=== PATIENT | male | born 1935 | race Two or more races ===

== ENCOUNTER 2016-10-29 21:11 | Emergency (ER) | payer MEDICARE, MEDICAID ==
[~2016-10-29] VITALS: Ht 172.7 cm; Wt 86.2 kg
--- NOTE | 2016-10-29 21:40 | NUR ---
PT BIBA, PT IS ALTERED, PT BREATHIGN EFFORTLESSLY ON ROOM AIR, PT PER EMS WAS TRYING TO SIT IN A CHAIR AND FELL AND HIT HIS HEAD INTO THE CHAIR, PT STATES HE IS FEELING FINE, THERE IS A BUMP ONHT EBACK OF HIS HEAD, PT FRIEND IS AT BEDSIDE, PT ON MONITOR, MD MADE AWAREWILL CONTINUE TO MONITOR.
[2016-10-29 22:05] LABS: BASOPHILS # (AUTO) 0.1 /CMM (0.0-0.2); BASOPHILS % (AUTO) 0.4 % (0.0-2.0); EOSINOPHILS % (AUTO) 0.1 % (0.0-6.0); HEMATOCRIT 35 % (39-51); HEMOGLOBIN 11.4 g/dL (13.5-17.5); LYMPHOCYTES # (AUTO) 1.6 /CMM (0.8-4.8); MEAN CORPUSCULAR HEMOGLOBIN 29 PG (26.0-33.0); MEAN CORPUSCULAR HGB CONC 33 g/dl (31.0-36.0); MEAN CORPUSCULAR VOLUME 87 fL (80-96); MONOCYTES # (AUTO) 1.1 /CMM (0.1-1.30); MONOCYTES % (AUTO) 8.4 % (2.0-12.0); NEUTROPHILS # (AUTO) 10.7 /CMM (1.8-8.9); NEUTROPHILS % (AUTO) 79.1 % (43.0-81.0); PLATELET COUNT (AUTO) 225 /CMM (150-450); RDW COEFFICIENT OF VARIATION 14.7 (11.5-15.0); RED BLOOD CELL COUNT(AUTO) 3.99 MIL/uL (4.5-6.0); WHITE BLOOD COUNT (AUTO) 13.5 K/uL (4.3-11.0)
[2016-10-29 22:22] LABS: CALCIUM, SERUM 8.4 mg/dL (8.5-10.1); CARBON DIOXIDE 25 mmol/L (21-32); CHLORIDE 108 mmol/L (98-107); CREATININE 1.1 mg/dL (0.6-1.3); GLUCOSE 102 mg/dL (74-106); POTASSIUM 3.9 mmol/L (3.5-5.1); SODIUM SERUM 144 mmol/L (136-145); UREA NITROGEN, BLOOD 25 mg/dL (7-18)
[2016-10-29 22:26] LABS: INR 1.54 (0.87-1.13); PROTHROMBIN TIME 16.9 SECS (9.5-12.7)
[2016-10-29 22:30] LABS: TROPONIN I < 0.017 ng/mL (0.00-0.056)
[2016-10-29 22:39] LABS: APPEARANCE,URINE TURBID (CLEAR); BILIRUBIN,URINE NEGATIVE (NEGATIVE); BLOOD, URINE 1+ Ery/uL (NEGATIVE); COLOR,URINE YELLOW (YELLOW); KETONES,URINE NEGATIVE (NEGATIVE); LEUKOCYTE ESTERASE ,URINE NEGATIVE (NEGATIVE); NITRITE, URINE NEGATIVE (NEGATIVE); PH,URINE 5.5 (5.0-8.0); PROTEIN,URINE 1+ mg/dl (NEGATIVE); UGLUCOSE NEGATIVE (NEGATIVE)
[2016-10-29 22:46] LABS: ADD URINE CULTURE NO; BACTERIA,URINE Rare /HPF (None Seen); SQUAMOUS EPITHELIAL CELL,UR Few /HPF (None Seen)
--- NOTE | 2016-10-30 00:36 | NUR ---
[facility] CALLED FOR TRANSPORT. ETA 1-1.5 HRS
[2016-10-30 03:51] VITALS: BP 104/88
== END 2016-10-30 03:53 ==
LOC: ER 21:20
DX: S09.90XA Unspecified injury of head, initial encounter (principal); R51 Headache; I10 Essential (primary) hypertension; I48.91 Unspecified atrial fibrillation; F03.90 Unspecified dementia, unspecified severity, without behavioral disturbance, psychotic disturbance, mood disturbance, and anxiety; G93.41 Metabolic encephalopathy; R82.79 Other abnormal findings on microbiological examination of urine; W07.XXXA Fall from chair, initial encounter; Y93.89 Activity, other specified; Y92.89 Other specified places as the place of occurrence of the external cause; Y99.8 Other external cause status
CPT/HCPCS: 36415; 70450; 80048; 81001; 84484; 85025; 85730; 87086; 93005; 99285; A4606; 81000-TC; Z7610

== ENCOUNTER 2017-11-13 12:04 | Inpatient (IN) | payer MEDICARE, OTHER ==
[~2017-11-13] VITALS: Ht 185.4 cm; Wt 72.6 kg
--- NOTE | 2017-11-13 12:04 | NUR ---
PATIENT [facility] DEMOLISHED 2001 FOR SOB, REPORTED PT'S O2 LEVEL WAS IN LOW 80'S% IN THE FIELD. BS-158. PT IS FEBRILE, NOTED 104.5 'F RECTALLY. TACHYCARDIC AT 140-150'S. PT IS VERY CONFUSED, UNABLE TO GET HISTORY. PT GOWNED AND PLACED ON CONT CARDIAC AND POX MONITORING. ALL NEEDS ARE ATTENDED, KEPT COMFORTABLE. DR. CORDOVA AT BEDSIDE FOR EVALUATION.
[2017-11-13] MEDS ORDERED: ACETAMINOPHEN 650 MG/SUPP.RECT RC ONE ×2 (12:10→12:30)
[2017-11-13] MEDS ORDERED: OLANZAPINE 10 MG VIAL IM ONE ×4 (12:19→13:30)
--- NOTE | 2017-11-13 12:20 | NUR ---
IV ACCESS STARTED, BLOOD AND CULTURES DRAWN FOR LABS. MEDICATED ORDERED.
[2017-11-13 12:27] LABS: BASOPHILS # (AUTO) 0.9 /CMM (0.0-0.2); BASOPHILS % (AUTO) 4.2 % (0.0-2.0); EOSINOPHILS % (AUTO) 0.1 % (0.0-6.0); HEMATOCRIT 36 % (39-51); HEMOGLOBIN 12.2 g/dL (13.5-17.5); LYMPHOCYTES # (AUTO) 1.8 /CMM (0.8-4.8); LYMPHOCYTES % (AUTO) 8.2 % (20.0-44.0); MEAN CORPUSCULAR HGB CONC 34 g/dl (31.0-36.0); MEAN CORPUSCULAR VOLUME 89 fL (80-96); MONOCYTES % (AUTO) 4.7 % (2.0-12.0); NEUTROPHILS # (AUTO) 18.4 /CMM (1.8-8.9); NEUTROPHILS % (AUTO) 82.8 % (43.0-81.0); PLATELET COUNT (AUTO) 214 /CMM (150-450); RDW COEFFICIENT OF VARIATION 14.7 (11.5-15.0); RED BLOOD CELL COUNT(AUTO) 4.01 MIL/uL (4.5-6.0); WHITE BLOOD COUNT (AUTO) 22.1 K/uL (4.3-11.0)
[2017-11-13] MEDS ORDERED: VANCOMYCIN 1 GM in IV D5W 250 ML IV ONE (12:30)
[2017-11-13] MEDS ORDERED: IV NS 0.9% 1,000 ML BAG IV ONE (12:30)
[2017-11-13] MEDS ORDERED: ACETAMINOPHEN ES 500 MG TABLET PO ONE (12:30)
[2017-11-13] MEDS ORDERED: MEROPENEM 1 G in IV NS 0.9% 100 ML IV ONE (12:30)
[2017-11-13 12:35] LABS: CALCIUM, SERUM 9.1 mg/dL (8.5-10.1); CARBON DIOXIDE 23 mmol/L (21-32); CHLORIDE 103 mmol/L (98-107); CREATININE 1.3 mg/dL (0.6-1.3); GLUCOSE 162 mg/dL (74-106); POTASSIUM 4.9 mmol/L (3.5-5.1); SODIUM SERUM 138 mmol/L (136-145); UREA NITROGEN, BLOOD 30 mg/dL (7-18)
[2017-11-13 12:39] LABS: INR 1.12 (0.85-1.15)
[2017-11-13 12:41] LABS: ALANINE AMINOTRANSFERASE 21 U/L (12-78); ALBUMIN 3.1 g/dL (3.4-5.0); ALKALINE PHOSPHATASE 88 U/L (46-116); ASPARTATE AMINOTRANSFERASE 22 U/L (15-37); BILIRUBIN,DIRECT 0.7 mg/dL (0.0-0.2); BILIRUBIN,TOTAL 1.5 mg/dL (0.2-1.0); TOTAL PROTEIN, SERUM 7.2 g/dL (6.4-8.2)
[2017-11-13 12:43] LABS: TROPONIN I 0.022 ng/mL (0.00-0.056)
--- NOTE | 2017-11-13 13:00 | NUR ---
URINE SAMPLE OBTAINED, VIA IN AND OUT CATH. SENT.
[2017-11-13 13:14] LABS: APPEARANCE,URINE Cloudy (CLEAR); BILIRUBIN,URINE MODERATE (NEGATIVE); BLOOD, URINE Trace-intact Ery/uL (NEGATIVE); COLOR,URINE Dark (YELLOW); KETONES,URINE Trace (NEGATIVE); LEUKOCYTE ESTERASE ,URINE Negative (NEGATIVE); NITRITE, URINE Negative (NEGATIVE); PROTEIN,URINE 100 mg/dl (NEGATIVE); UGLUCOSE 100 MG/DL mg/dL (NEGATIVE)
--- NOTE | 2017-11-13 13:16 | NUR ---
PT IS ASSIGNED TO [facility]#: [id number], PT IS DIAGNOSED WITH SEPSIS AND PNEUMONIA, AND KINA PLEITEZ IS THE ACCEPTING DNP.
[2017-11-13] MEDS ORDERED: DILT180C66 PO (13:18)
[2017-11-13] MEDS ORDERED: CHOL200026 PO (13:18)
[2017-11-13] MEDS ORDERED: SACC250C PO (13:18)
[2017-11-13] MEDS ORDERED: NA P133E RC (13:18)
[2017-11-13] MEDS ORDERED: DIGO250T PO (13:18)
[2017-11-13] MEDS ORDERED: PANT40TA2 PO (13:18)
[2017-11-13] MEDS ORDERED: MAG30ORA PO (13:18)
[2017-11-13] MEDS ORDERED: ONDA4TAB5 PO (13:18)
[2017-11-13] MEDS ORDERED: ACET-868 PO (13:18)
[2017-11-13] MEDS ORDERED: IPRA0.2S49 IH (13:18)
[2017-11-13] MEDS ORDERED: MIRT15TA PO (13:18)
[2017-11-13] MEDS ORDERED: DIVA125C2 PO (13:18)
[2017-11-13] MEDS ORDERED: TEMA15CA PO (13:18)
[2017-11-13] MEDS ORDERED: LEVA1.2528 IH (13:18)
[2017-11-13] MEDS ORDERED: RISP2TAB5 PO (13:18)
[2017-11-13] MEDS ORDERED: RIVA10TA PO (13:18)
[2017-11-13] MEDS ORDERED: RISP1TAB27 PO (13:18)
[2017-11-13] MEDS ORDERED: MULT-447 PO (13:18)
[2017-11-13] MEDS ORDERED: DEXT15DR6 EACHEYE (13:18)
--- NOTE | 2017-11-13 13:18 | NUR ---
RECEIVED VERBAL ORDER FROM DR. CORDOVA FOR ZYPREXA 5MG IM. ORDERS CARRIED OUT.
--- NOTE | 2017-11-13 13:24 | NUR ---
REPORT GIVEN TO PARKER TROY FOR TELE [id number].
[2017-11-13 13:28] LABS: BACTERIA,URINE Few /HPF (None Seen); SQUAMOUS EPITHELIAL CELL,UR Moderate /HPF (None Seen)
[2017-11-13] MEDS ORDERED: IV NS 0.9% 500 ML BAG IV ONE (13:30)
[2017-11-13] MEDS ORDERED: MAGNESIUM HYDROXIDE 30 ML UDC PO PRN (13:30)
[2017-11-13] MEDS ORDERED: Z GUARD REMEDY 2 OZ OINT TP PRN (13:30)
[2017-11-13] MEDS ORDERED: ACETAMINOPHEN 325 MG TABLET PO PRN ×2 (13:30→16:00)
[2017-11-13] MEDS ORDERED: MAG HYDROX/AL HYDROX/SIMETH 30 ML UDC PO PRN (13:30)
[2017-11-13] MEDS ORDERED: ONDANSETRON HCL/PF 4 MG/2 ML VIAL IVP PRN (13:30)
[2017-11-13] MEDS ORDERED: ACETAMINOPHEN 650 MG/SUPP.RECT RC PRN (13:30)
[2017-11-13] MEDS ORDERED: HYDROCODONE/APAP 5/325MG 1 EACH TABLET PO PRN (13:30)
[2017-11-13] MEDS ORDERED: ZOLPIDEM TARTRATE 5 MG TABLET PO PRN (13:30)
--- NOTE | 2017-11-13 14:00 | NUR ---
MS LIBRARY CLERK TALKING BOOKS NOTE Patient admitted to [facility] from ED for pneumonia. Assisted patient to bed, made comfortable. Patient AAOx1 to self with confusion and agitation. Patient arrived with non-rebreather mask on 15L O2. BP 107/60, HR 144 bpm, RR 22, O2 Sat 97%, T 98.1 F. Peripheral IV LFA #18. Admission assessment completed and current orders acknowledged. Bed placed in low/locked position with two side rails up, and call robles within reach. Will continue to monitor.
[2017-11-13] MEDS ORDERED: IPRATROPIUM NEB FS 0.5 MG/2.5 ML AMPUL.NEB IH PRN (16:00)
[2017-11-13] MEDS ORDERED: NA PHOS,M-B/NA PHOS,DI-BA 1 EA ENEMA RC PRN (16:00)
[2017-11-13] MEDS ORDERED: FEE PK DOSING 1 MIN EA MC ONE (16:05)
[2017-11-13] MEDS ORDERED: ONDANSETRON 4 MG TAB.RAPDIS PO PRN (16:30)
--- NOTE | 2017-11-13 17:54 | NUR ---
GENERAL PRODUCTION MANAGER NOTES RECEIVED ORDER FROM KINA GOODMAN TO CHANGE ORDER FROM NPO TO NPO EXCEPT MEDS, NOTED AND CARRIED OUT.
[2017-11-13] MEDS: POLYVINYL ALCOHOL 15 ML BOTTLE EACHEYE SCH (18:01)
[2017-11-13] MEDS: CHOLECALCIFEROL 1,000 UNIT TABLET (VIT D3) PO SCH (18:01)
[2017-11-13] MEDS: LACTOBACILLUS RHAMNOSUS GG 1 EACH CAP.SPRINK PO SCH (18:03)
[2017-11-13] MEDS: MEROPENEM 1 G in IV NS 0.9% 100 ML IV SCH (18:03)
[2017-11-13] MEDS: DIVALPROEX SODIUM 125 MG CAP.SPRINK PO SCH (18:03)
--- NOTE | 2017-11-13 18:55 | NUR ---
MS RN CLOSING NOTES Patient resting in bed, sleeping intermittently. AOx1 - patient follows simple commands but is often confused and easily agitated; patient unable to keep still - often pulling at IV line and O2 NC; patient has 1:1 sitter. Patient on 5 L O2 NC with no SOB. No signs or symptoms acute distress. Left forearm IV running NS at 75 ml/hr. Blood and urine cultures pending. Metabolic panel and CBC next AM. Patient remains on tele monitor NSR with occasional PVCs. Bed in low/locked position, two side rails up, call robles within reach. Care to be endorsed to shift supervisor melting nurse.
[2017-11-13] MEDS: RIVAROXABAN 10 MG TABLET PO SCH (19:24)
[2017-11-13] MEDS: IV NS 0.9% 1,000 ML IV PRN (19:25)
[2017-11-13] MEDS ORDERED: ALBUTEROL FS 2.5 MG/3 ML VIAL.NEB NEB PRN (19:30)
--- NOTE | 2017-11-13 19:30 | NUR ---
PAPER CONE MACHINE TENDER OPENING NOTES RECEIVED PT IN BED, AWAKE, VERBALLY RESPONSIVE, ZIMBABWEAN SPEAKING. ON O2 VIA N/C AT 5L/MIN, RESPIRATIONS EVEN, UNLABORED, NO APPARENT DISTRESS NOTED. SR WITH PVC 96 BPM. NO S/SX OF PAIN OR DISCOMFORT NOTED. IV SITE LFA INTACT, PATENT. SITTER AT BED SITE. BED LOCKED IN LOWEST POSITION. ATTENDED ALL NEEDS. WILL CONTINUE TO MONITOR ACCORDINGLY.
[2017-11-13 20:00] VITALS: BP 110/78
[2017-11-13] MEDS: risperiDONE 1 MG TABLET PO SCH (21:19)
[2017-11-13] MEDS: MIRTAZAPINE 15 MG TABLET PO SCH (21:20)
[2017-11-13] MEDS: TEMAZEPAM 15 MG CAPSULE PO SCH (21:20)
[2017-11-14] VITALS: BP 112/64
[2017-11-14] MEDS: VANCOMYCIN 500 MG in IV NS 0.9% 100 ML IV SCH ×2 (00:35→13:10)
[2017-11-14] MEDS: MEROPENEM 1 G in IV NS 0.9% 100 ML IV SCH ×2 (05:01→17:49)
[2017-11-14] MEDS: IV NS 0.9% 1,000 ML IV PRN (05:01)
--- NOTE | 2017-11-14 06:56 | NUR ---
TRAVEL AGENT CLOSING NOTES PT IN BED RESTING COMFORTABLY,NO APPARENT DISTRESS NOTED. NO S/SX OF PAIN OR DISCOMFORT NOTED. IV SITE INTACT, PATENT. KEPT CLEAN AND COMFORTABLE, ATTENDED ALL NEEDS. SITTER AT BEDSIDE. WILL ENDORSE TO DAY SHIFT FOR CONTINUITY OF CARE.
--- NOTE | 2017-11-14 07:05 | NUR ---
RN OPENING NOTES RECEIVED PATIENT IN BED, ALERT ORIENTED X 2. SITTER AT BEDSIDE. NO ACUTE DISTRESS NOTES. BREATHING UNLABORED. ON O2 VIA NC. IV ACCESS PATENT AND INTACT. SAFETY MEASURES IN PLACE. HOB ELEVATED. CALL LIGHT WITHIN REACH. WILL CONTINUE TO MONITOR ACCORDINGLY.
[2017-11-14 07:11] LABS: BASOPHILS % (AUTO) 0.2 % (0.0-2.0); HEMATOCRIT 33 % (39-51); HEMOGLOBIN 11.5 g/dL (13.5-17.5); LYMPHOCYTES % (AUTO) 7.8 % (20.0-44.0); MEAN CORPUSCULAR HGB CONC 34 g/dl (31.0-36.0); MEAN CORPUSCULAR VOLUME 90 fL (80-96); MONOCYTES # (AUTO) 0.3 /CMM (0.1-1.30); MONOCYTES % (AUTO) 2.6 % (2.0-12.0); NEUTROPHILS # (AUTO) 11.7 /CMM (1.8-8.9); NEUTROPHILS % (AUTO) 89.4 % (43.0-81.0); PLATELET COUNT (AUTO) 155 /CMM (150-450); RDW COEFFICIENT OF VARIATION 15.5 (11.5-15.0); RED BLOOD CELL COUNT(AUTO) 3.71 MIL/uL (4.5-6.0); WHITE BLOOD COUNT (AUTO) 13.1 K/uL (4.3-11.0)
[2017-11-14] MEDS ORDERED: PANTOPRAZOLE 40 MG TABLET.DR PO SCH (07:30)
[2017-11-14 07:35] LABS: ALANINE AMINOTRANSFERASE 23 U/L (12-78); ALBUMIN 2.4 g/dL (3.4-5.0); ALKALINE PHOSPHATASE 59 U/L (46-116); ASPARTATE AMINOTRANSFERASE 31 U/L (15-37); CALCIUM, SERUM 8.2 mg/dL (8.5-10.1); CARBON DIOXIDE 23 mmol/L (21-32); CHLORIDE 108 mmol/L (98-107); CREATININE 0.3 mg/dL (0.6-1.3); GLUCOSE 94 mg/dL (74-106); MAGNESIUM 1.7 mg/dL (1.8-2.4); PHOSPHORUS 2.6 mg/dL (2.5-4.9); POTASSIUM 3.5 mmol/L (3.5-5.1); SODIUM SERUM 142 mmol/L (136-145); TOTAL PROTEIN, SERUM 6.4 g/dL (6.4-8.2); UREA NITROGEN, BLOOD 23 mg/dL (7-18)
[2017-11-14 07:37] LABS: CHOLESTEROL 105 mg/dL (<200); HDL CHOLESTEROL 30 mg/dL (40-60); LDL 68 mg/dL (0-99); THYROID STIMULATING HORMONE 1.718 uIU/mL (0.358-3.74); TRIGLYCERIDES 71 mg/dL (30-150)
[2017-11-14 08:00] VITALS: BP 121/66
[2017-11-14] MEDS: DILTIAZEM HCL CD 180 MG PO SCH (08:39)
[2017-11-14] MEDS: MULTIVIT, IRON, MIN NO. 8, FA 1 TAB PO SCH (08:40)
[2017-11-14] MEDS: risperiDONE 1 MG TABLET PO SCH ×2 (08:40→21:20)
[2017-11-14] MEDS: CHOLECALCIFEROL 1,000 UNIT TABLET (VIT D3) PO SCH (08:40)
[2017-11-14] MEDS: DIVALPROEX SODIUM 125 MG CAP.SPRINK PO SCH ×3 (08:40→17:50)
[2017-11-14] MEDS: LACTOBACILLUS RHAMNOSUS GG 1 EACH CAP.SPRINK PO SCH ×2 (08:40→17:50)
[2017-11-14] MEDS: PANTOPRAZOLE 40 MG VIAL IV SCH (08:40)
[2017-11-14] MEDS: POLYVINYL ALCOHOL 15 ML BOTTLE EACHEYE SCH ×2 (08:41→17:52)
[2017-11-14] MEDS ORDERED: MAG HYDROX/AL HYDROX/SIMETH 30 ML UDC PO SCH (09:00)
--- NOTE | 2017-11-14 09:40 | NUR ---
RN NOTES SEEN AND EVALUATED BY DR VARGHESE AND DR BECK WITH NEW ORDERS MADE. NOTED AND CARRIED OUT.
--- NOTE | 2017-11-14 11:45 | NUR ---
RN NOTES SEEN AND EVALUATED BY REX PLEITEZ WITH NEW ORDERS MADE. NOTED AND CARRIED OUT.
[2017-11-14] MEDS: Magnesium 1GM/D5W 100ML PREMIX 100 ML IV SCH ×2 (11:53→14:31)
[2017-11-14] MEDS: DIGOXIN 0.25 MG TABLET PO SCH (13:59)
[2017-11-14 16:00] VITALS: BP 112/73
[2017-11-14] MEDS: RIVAROXABAN 10 MG TABLET PO SCH (17:51)
--- NOTE | 2017-11-14 18:45 | NUR ---
RN CLOSING NOTES PATIENT IN BED, ALERT ORIENTED X2. SITTER AT BEDSIDE. NO ACUTE DISTRESS NOTES. BREATHING UNLABORED. ON O2 VIA NC, IV ACCESS PATENT AND INTACT. DUE MEDICATIONS GIVEN, NO ASE NOTED. SAFETY MEASURES IN PLACE. CALL LIGHT WITHIN REACH. WILL CONTINUE TO MONITOR ACCORDINGLY.WILL ENDORSE TO NIGHT NURSE FOR CONTINUITY OF CARE.
--- NOTE | 2017-11-14 19:25 | NUR ---
RN OPENING NOTES PT RESTING IN BED. 1:1 SITTER AT BEDSIDE. NO APPARENT S/S OF PAIN, DISTRESS OR SOB AT THIS. PT HAS A LEFT FOREARM #18 IV RUNNING NS @75ML/HR. SAFETY PRECAUTIONS IN PLACE, BED IN LOWEST, LOCKED POSITION, X2 SIDERAILS UP, CALL LIGHT WITHIN REACH. WILL CONTINUE TO MONITOR.
[2017-11-14 20:00] VITALS: BP 101/61
[2017-11-14] MEDS: MIRTAZAPINE 15 MG TABLET PO SCH (21:20)
[2017-11-14] MEDS: TEMAZEPAM 15 MG CAPSULE PO SCH (21:21)
[2017-11-15] MEDS: IV NS 0.9% 1,000 ML IV PRN ×2 (01:15→21:14)
[2017-11-15] MEDS ORDERED: VANCOMYCIN 1 GM VIAL ONE (03:23)
[2017-11-15] MEDS: VANCOMYCIN 0.75 GM in IV D5W 250 ML IV SCH ×2 (03:36→12:13)
[2017-11-15] MEDS: MEROPENEM 1 G in IV NS 0.9% 100 ML IV SCH ×2 (05:10→17:54)
--- NOTE | 2017-11-15 06:33 | NUR ---
RN CLOSING NOTES PT RESTING IN BED. 1:1 SITTER AT BEDSIDE. NO APPARENT S/S OF PAIN, DISTRESS OR SOB AT THIS. PT HAS A LEFT FOREARM #18 IV RUNNING NS @75ML/HR. SAFETY PRECAUTIONS IN PLACE, BED IN LOWEST, LOCKED POSITION, X2 SIDE RAILS UP, CALL LIGHT WITHIN REACH. WILL ENDORSE TO DAY SHIFT NURSE FOR CONTINUITY OF CARE.
[2017-11-15 06:55] LABS: CALCIUM, SERUM 7.5 mg/dL (8.5-10.1); CARBON DIOXIDE 22 mmol/L (21-32); CHLORIDE 111 mmol/L (98-107); CREATININE 0.8 mg/dL (0.6-1.3); GLUCOSE 106 mg/dL (74-106); MAGNESIUM 2.2 mg/dL (1.8-2.4); POTASSIUM 3.7 mmol/L (3.5-5.1); SODIUM SERUM 143 mmol/L (136-145); UREA NITROGEN, BLOOD 22 mg/dL (7-18)
--- NOTE | 2017-11-15 07:15 | NUR ---
RN NOTES PATIENT IN BED, ASLEEP BUT EASILY AROUSABLE, NO DISTRESS NOTED, BREATHING EVEN AND UNLABORED, NO SOB NOTED, SITTER AT BEDSIDE, HR 108-116 AT THIS TIME, NEEDS ATTENDED, CALL LIGHT WITHIN REACH, WILL CONTINUE TO MONITOR.
[2017-11-15 08:00] VITALS: BP 102/77
[2017-11-15] MEDS: POLYVINYL ALCOHOL 15 ML BOTTLE EACHEYE SCH ×2 (09:00→17:57)
[2017-11-15] MEDS: risperiDONE 1 MG TABLET PO SCH ×2 (09:21→21:52)
[2017-11-15] MEDS: DIVALPROEX SODIUM 125 MG CAP.SPRINK PO SCH ×3 (09:21→16:52)
[2017-11-15] MEDS: LACTOBACILLUS RHAMNOSUS GG 1 EACH CAP.SPRINK PO SCH ×2 (09:21→16:52)
[2017-11-15] MEDS: PANTOPRAZOLE 40 MG VIAL IV SCH (09:22)
[2017-11-15] MEDS: DILTIAZEM HCL CD 180 MG PO SCH (09:22)
[2017-11-15] MEDS: CHOLECALCIFEROL 1,000 UNIT TABLET (VIT D3) PO SCH (09:23)
[2017-11-15] MEDS: MULTIVIT, IRON, MIN NO. 8, FA 1 TAB PO SCH (09:23)
[2017-11-15 12:00] VITALS: BP 102/69
[2017-11-15] MEDS: DIGOXIN 0.25 MG TABLET PO SCH (12:17)
[2017-11-15 16:00] VITALS: BP 105/65
[2017-11-15] MEDS: RIVAROXABAN 10 MG TABLET PO SCH (16:52)
--- NOTE | 2017-11-15 19:05 | NUR ---
RN NOTES RLE DOPPLER VENOUS US, RESULT IS NEGATIVE. PATIENT ALERT AND ORIENTED X2, MOHAWK/PUERTO RICAN SPEAKING, NO EPISODE OF AGITATION THROUGHOUT THE SHIFT, MEDS WERE MIXED WITH FOOD, SKIN CARE RENDERED, TURNED AND REPOSITIONED EVERY 2 HOURS AND PRN, ALL NEEDS ATTENDED AND MET, CALL LIGHT WITHIN REACH, WILL ENDORSE TO COMBINATION OPERATOR FOR AUGUSTIN.
--- NOTE | 2017-11-15 19:30 | NUR ---
MS/DOWEL INSERTING MACHINE OPERATOR; RECEIVED PT'S REPORTS FROM THE DAY SHIFT RN FOR CONTINUITY OF CARE. AT THIS TIME PT IN BED QUIET SLEEPING. BREATHING NON LABORED. IVF ON PROGRESS OF NS AT 75 ML / HOUR . BED ON LOWER POSITION AND LOCKED FOR SAFETY. SIDE RAILS ARE UP FOR SAFETY. SITTER .WILL CONTINUE TO MONITOR. SITTER PRESENT IN THE ROOM.
--- NOTE | 2017-11-15 19:45 | NUR ---
MS/WANT AD SUPERVISOR; PT PULLED OUT THE IV WITH SOME BLEEDING NOTED. PRESSURE APPLIED TO IV SITE. ALSO NOTED PT IS INCONTINENT OF URINE. [place] CARE DONE AND DIAPER , BED LINENS CHANGED. REPOSITIONED FOR COMFORT.
--- NOTE | 2017-11-15 20:15 | NUR ---
MS/CERTIFIED TECHNICIAN SPECIALIST; PT VISITED BY DR. GRANDA , HE TALKED TO THE PT IN THEIR OWN LANGUAGE. NO NEW ORDER MADE.
--- NOTE | 2017-11-15 20:30 | NUR ---
MS/NET C DEVELOPER; NEW HL INSERTED TO ANNA # 22 ANGIO CATH AND IVF RESUMED. PT NO AGGRESSION AT THIS AND APPEARED COOPERATIVE DURING INSERTION OF THE NEW IV LINE. WILL CONTINUE TO MONITOR.
[2017-11-15 20:50] VITALS: BP 112/74
[2017-11-15] MEDS: MIRTAZAPINE 15 MG TABLET PO SCH (21:51)
[2017-11-15] MEDS: TEMAZEPAM 15 MG CAPSULE PO SCH (21:53)
--- NOTE | 2017-11-15 22:00 | NUR ---
MS/DIRECTOR OPERATIONS BROADCAST; DUE PO MEDS PT BADLY REFUSED WITNESSED BY ANOTHE STAFF AN RN. GOT AGITATED .
--- NOTE | 2017-11-16 00:15 | NUR ---
MS/FRAMING MILL OPERATOR HELPER; PT WOKE UP AND WANTS TO USE URINAL OFFERED AND VOIDED APPROX. 400 ML YELLOW URINE AND SOME SPILLED . PER ANAL CARE RENDERED. DIAPER , HOSPITAL AND BED LINENS CHANGED. REPOSITIONED ON SUPINE POSITION. WILL CONTINUE TO MONITOR. AT THIS TIME ALSO BLOOD DRAWN BY LAB. TECH. FOR VANCOMYCIN TROUGH. PT WNET BACK TO SLEEP.
[2017-11-16] MEDS: VANCOMYCIN 0.75 GM in IV D5W 250 ML IV SCH (01:30)
--- NOTE | 2017-11-16 02:00 | NUR ---
MS/IAP DISPLAYS ANALYST; PT IN BED SLEEPING AT THIS TIME. BREATHING NON LABORED. IVF ON PROGRESS.
[2017-11-16] MEDS: MEROPENEM 1 G in IV NS 0.9% 100 ML IV SCH ×2 (05:03→17:11)
--- NOTE | 2017-11-16 06:15 | NUR ---
MS/QUALITY COMPLIANCE COORDINATOR; PT USED URINAL VOIDED 400 ML YELLOW URINE. MORNING BED BATH RENDERED. GOWN, BED LINENS CHANGED. ALSO DIAPER CHANGED. REPOSITIONED FOR COMFORT . IVF RESUMED AND PATENT. ALSO NOTED WHEN PT RECEIVED LAST HAS REDNESS AND SLIGHT SWELLING LAC . DENIES ANY PAIN. COUGHING NOTED ON AND OF. SLEPT AT GOOD INTERVAL LAST NIGHT. SITTER PRESENT AT ALL TIMES. WILL CONTINUE TO MONITOR. WILL ENDORSE TO THE DAY SHIFT NURSE FOR CONTINUITY OF CARE.
[2017-11-16 06:59] LABS: CALCIUM, SERUM 7.5 mg/dL (8.5-10.1); CARBON DIOXIDE 23 mmol/L (21-32); CHLORIDE 110 mmol/L (98-107); CREATININE 0.8 mg/dL (0.6-1.3); GLUCOSE 94 mg/dL (74-106); POTASSIUM 3.7 mmol/L (3.5-5.1); SODIUM SERUM 141 mmol/L (136-145); UREA NITROGEN, BLOOD 17 mg/dL (7-18)
--- NOTE | 2017-11-16 07:51 | NUR ---
RN OPENING NOTES RECEIVED PT. PT IS STABLE AND RESTING IN BED, SITTER AT BEDSIDE. A/OX1. NO S/S OF RESP DISTRESS OR SOB. PT DOES NOT APPEAR TO BE IN PAIN. IV ACCESS LOCATED ON RIGHT FA 22G, INFUSING NS AT 75 ML/HR.PER FIREPOT OPERATOR AND TENDER REPORT, PT HAS PERSISTENT NON-PRODUCTIVE COUGH, WILL NOTIFY MD. SAFETY MEASURES IN PLACE, CALL LIGHT WITHIN REACH. WILL CONTINUE TO MONITOR.
[2017-11-16 08:00] VITALS: BP 120/75
[2017-11-16] MEDS: MULTIVIT, IRON, MIN NO. 8, FA 1 TAB PO SCH (08:13)
[2017-11-16] MEDS: DIVALPROEX SODIUM 125 MG CAP.SPRINK PO SCH ×3 (08:13→17:00)
[2017-11-16] MEDS: LACTOBACILLUS RHAMNOSUS GG 1 EACH CAP.SPRINK PO SCH ×2 (08:14→17:00)
[2017-11-16] MEDS: PANTOPRAZOLE 40 MG VIAL IV SCH (08:14)
[2017-11-16] MEDS: risperiDONE 1 MG TABLET PO SCH ×2 (08:14→21:59)
[2017-11-16] MEDS: CHOLECALCIFEROL 1,000 UNIT TABLET (VIT D3) PO SCH (08:14)
[2017-11-16] MEDS: DILTIAZEM HCL CD 180 MG PO SCH (08:15)
[2017-11-16] MEDS: POLYVINYL ALCOHOL 15 ML BOTTLE EACHEYE SCH ×2 (08:26→17:28)
[2017-11-16] MEDS: DIGOXIN 0.25 MG TABLET PO SCH (12:32)
[2017-11-16] MEDS: VANCOMYCIN 1 GM in IV D5W 250 ML IV SCH (14:34)
[2017-11-16 16:08] VITALS: BP 116/74
[2017-11-16] MEDS: RIVAROXABAN 10 MG TABLET PO SCH (17:00)
--- NOTE | 2017-11-16 19:09 | NUR ---
RN CLOSING NOTES PT IN BED RESTING. NO S/S OF RESP DISTRESS OR SOB. NO C/O PAIN AT THIS TIME. PT REMOVED IV ACCESS, REFUSES INSERTION OF NEW ACCESS. 1:1 SITTER D/C. ALL PT NEEDS ANTICIPATED AND MET. SAFETY MEASURES IN PLACE, CALL LIGHT IN REACH. WILL ENDORSE TO TECHNICAL SOLUTIONS CONSULTANT FOR AUGUSTIN.
[2017-11-16 19:44] VITALS: BP 126/90
[2017-11-16 20:00] VITALS: BP 126/90
--- NOTE | 2017-11-16 20:00 | NUR ---
RECIEVED MR. FAYE ALERT AND ORIENTATED. SMILING GOOD EYE CONTACT. NO IV AT THIS TIME EXPLAINED TO HIM EVEN THOUGH HE SPEAKS BOT[place]N THE REASON FOR HAVING A IV ANTIBIOTIS. HE AGREED AND I PLAVED A 22 G LEFT FOREARM, HE SHOWED ME THE VEIN TO USE!
[2017-11-16] MEDS: IV NS 0.9% 1,000 ML IV PRN (21:12)
[2017-11-16] MEDS: MIRTAZAPINE 15 MG TABLET PO SCH (21:58)
[2017-11-16] MEDS: TEMAZEPAM 15 MG CAPSULE PO SCH (21:59)
--- NOTE | 2017-11-17 | NUR ---
RN NOTES RECEIVED PATIENT FROM [facility] IN BED, WITH EYES CLOSED, ABLE TO MAKE BASIC NEEDS KNOWN. NO ACUTE DISTRESS NOTED. NO SIGNS OF PAIN NOTED. IV SITE PATENT, INTACT; IVF INFUSING ORDERED. ON LOW BED WITH BILATERAL UPPER SIDE RAILS UP. CALL CHACON WITHIN EASY REACH. WILL CONTINUE TO MONITOR. SITTER AT BEDSIDE.
--- NOTE | 2017-11-17 00:06 | NUR ---
TRANSFERED MR. FAYE TO ROOM 206-1 VIA BED. EXPLAINED TO HIM ABOUT THE TRANSFER TO A NEW ROOM BUT HE JUST SHUT HIS EYES. BELONGINGS WITH THE PATIENT AND CHART GIVEN TO THE RN .
[2017-11-17] MEDS: VANCOMYCIN 1 GM in IV D5W 250 ML IV SCH ×2 (01:15→15:12)
[2017-11-17] MEDS: MEROPENEM 1 G in IV NS 0.9% 100 ML IV SCH ×2 (06:15→17:33)
[2017-11-17 06:31] LABS: CALCIUM, SERUM 7.9 mg/dL (8.5-10.1); CARBON DIOXIDE 24 mmol/L (21-32); CHLORIDE 110 mmol/L (98-107); CREATININE 0.7 mg/dL (0.6-1.3); GLUCOSE 81 mg/dL (74-106); POTASSIUM 3.8 mmol/L (3.5-5.1); SODIUM SERUM 143 mmol/L (136-145); UREA NITROGEN, BLOOD 13 mg/dL (7-18)
--- NOTE | 2017-11-17 06:59 | NUR ---
RN NOTES PATIENT ASLEEP, EASILY AROUSABLE. RESPIRATIONS EVEN. NO SIGNS OF PAIN NOTED. DUE MEDS GIVEN WITH NO ASE NOTED. NEEDS ATTENDED. KEPT CLEAN, DRY, AND COMFORTABLE. SAFETY PRECAUTIONS AND COMFORT MEASURES IN PLACE. WILL GIVE REPORT TO DAY SHIFT FOR CONTINUITY OF CARE. SITTER AT BEDSIDE.
[2017-11-17 08:00] VITALS: BP 130/82
--- NOTE | 2017-11-17 08:00 | NUR ---
MS 2 RN AM NOTES RECEIVED PT STABLE AND RESTING IN BED, SITTER AT BEDSIDE. A/OX1. SO CONFUSED.NO S/S OF RESP DISTRESS OR SOB. NO S/S OF PAIN.IV ACCESS LOCATED ON RIGHT FA 22G, INFUSING NS AT 75 ML/HR INFUSING WELL.SAFETY MEASURES IN PLACE,COMBATIVE DURING CARE MOST OF THE TIME.NEEDS 2 PERSON ASSIST IN CLEANING AND CHANGING THE PT.PT REFUSED TO BE TURNED ON HIS LEFT.WHEN REPOSITIONED TO HIS LEFT,PT TURNS BACK TO HIS RIGHT POSITION.EXPLAINED THE IMPORTANCE OF REPOSITIONING AND BEING CLEANED BUT PT BECOMES COMBATIVE. CALL LIGHT WITHIN REACH. WILL CONTINUE TO MONITOR.
[2017-11-17] MEDS: MULTIVIT, IRON, MIN NO. 8, FA 1 TAB PO SCH (08:43)
[2017-11-17] MEDS: LACTOBACILLUS RHAMNOSUS GG 1 EACH CAP.SPRINK PO SCH ×2 (08:43→17:00)
[2017-11-17] MEDS: DILTIAZEM HCL CD 180 MG PO SCH (08:43)
[2017-11-17] MEDS: DIVALPROEX SODIUM 125 MG CAP.SPRINK PO SCH ×4 (08:43→17:00)
[2017-11-17] MEDS: PANTOPRAZOLE 40 MG VIAL IV SCH (08:43)
[2017-11-17] MEDS: CHOLECALCIFEROL 1,000 UNIT TABLET (VIT D3) PO SCH (08:44)
[2017-11-17] MEDS: risperiDONE 1 MG TABLET PO SCH ×2 (08:44→21:00)
[2017-11-17] MEDS: POLYVINYL ALCOHOL 15 ML BOTTLE EACHEYE SCH ×2 (08:58→17:00)
[2017-11-17] MEDS: DIGOXIN 0.25 MG TABLET PO SCH ×2 (13:00→13:21)
[2017-11-17] MEDS: IV NS 0.9% 1,000 ML IV PRN (13:24)
[2017-11-17 16:00] VITALS: BP 128/74
[2017-11-17 16:30] LABS: BASOPHILS % (AUTO) 0.4 % (0.0-2.0); EOSINOPHILS % (AUTO) 1.3 % (0.0-6.0); HEMATOCRIT 33 % (39-51); HEMOGLOBIN 10.9 g/dL (13.5-17.5); LYMPHOCYTES # (AUTO) 1.4 /CMM (0.8-4.8); LYMPHOCYTES % (AUTO) 19.9 % (20.0-44.0); MEAN CORPUSCULAR HGB CONC 33 g/dl (31.0-36.0); MEAN CORPUSCULAR VOLUME 90 fL (80-96); MONOCYTES # (AUTO) 0.6 /CMM (0.1-1.30); MONOCYTES % (AUTO) 8.6 % (2.0-12.0); NEUTROPHILS % (AUTO) 69.8 % (43.0-81.0); PLATELET COUNT (AUTO) 267 /CMM (150-450); RDW COEFFICIENT OF VARIATION 15.8 (11.5-15.0); RED BLOOD CELL COUNT(AUTO) 3.67 MIL/uL (4.5-6.0); WHITE BLOOD COUNT (AUTO) 7.1 K/uL (4.3-11.0)
[2017-11-17] MEDS: RIVAROXABAN 10 MG TABLET PO SCH (17:00)
--- NOTE | 2017-11-17 17:56 | NUR ---
PT RESTING IN BED LYING ON HIS RIGHT SIDE REFUSING TO BE TURNED ON HIS LEFT POSITION.FIGHTING WITH STAFF,PULLING OUT HIS DIAPER.HAS 1:1 SITTER.NEEDS 2 PERSON ASSIST IN ADL CARE.
--- NOTE | 2017-11-17 18:00 | NUR ---
SEEN BY DR GRANDA AND MENTIONED TO HIM THAT KINA PLEITEZ NP STATED THAT PT IS MEDICALLY CLEARED AND WAS JUST WAITING FOR DR GRANDA PLAN FOR THE PT.DR GRANDA STATED THAT PT CAN BE DISCHARGED BACK TO [facility] AND NOT TO [facility].DR GRANDA VERBALIZED HIS CONCERN OF PT'S IV ATB.KINA PLEITEZ NP MADE AWARE OF DR GRANDA PLAN AND PT'S CBC RESULT.
--- NOTE | 2017-11-17 18:02 | NUR ---
NO S/S OF PAIN OR DISTRESS.REMAINS WITH 1:1 SITTER.
--- NOTE | 2017-11-17 19:30 | NUR ---
MS RN NOTE: PATIENT RESTING IN BED, NO ACUTE DISTRESS NOTED. BREATHING EVEN AND UNLABORED, NO SOB NOTED. IV TO LEFT HAND IN PLACE, INFUSING NS AT 75ML/HR. SITTER AT BEDSIDE. BED LOCKED AND IN LOWEST POSITION, CALL LIGHT IN REACH. WILL CONTINUE TO MONITOR.
[2017-11-17 20:00] VITALS: BP 94/66
[2017-11-17] MEDS: TEMAZEPAM 15 MG CAPSULE PO SCH (21:00)
[2017-11-17] MEDS: MIRTAZAPINE 15 MG TABLET PO SCH (21:00)
--- NOTE | 2017-11-18 | NUR ---
MS RN NOTE: PATIENT HAS DISCHARGE ORDER READY FOR PATIENT TO GO BACK TO [facility]. PATIENT TO RECEIVED LAST DOSE OF IV ANTIBIOTIC TONIGHT THEN TO BE TRANSFERRED IN MORNING. DISCHARGE PAPERWORK TO BE COMPLETED.
[2017-11-18] MEDS: VANCOMYCIN 1 GM in IV D5W 250 ML IV SCH (02:05)
[2017-11-18] MEDS: MEROPENEM 1 G in IV NS 0.9% 100 ML IV SCH (05:04)
--- NOTE | 2017-11-18 05:41 | NUR ---
MS RN NOTE: PATIENT TO BE PICKED UP TO BE TRANSFERRED TO [facility]. REPORT GIVEN TO EMT, DISCHARGE PAPERWORK GIVEN TO EMT. IV TO LEFT HAND REMOVED, COVERED WITH GAUZE, PRESSURE APPLIED, AND SECURED WITH TAPE. REPORT GIVEN TO EMMETT AT [facility]. PATIENT OFF FLOOR IN STABLE CONDITION.
== END 2017-11-18 05:40 | DRG 871 ==
LOC: ER 12:07 → TELE 13:44 → MED 11-14 08:57 → MEDSG2 11-16 23:59
PROVIDERS: ADMIT Hospitalist; ATTEND Hospitalist
DX: A41.9 Sepsis, unspecified organism (principal); J69.0 Pneumonitis due to inhalation of food and vomit; J96.01 Acute respiratory failure with hypoxia; J15.6 Pneumonia due to other Gram-negative bacteria; G92 Toxic encephalopathy; E44.0 Moderate protein-calorie malnutrition; F02.81 Dementia in other diseases classified elsewhere, unspecified severity, with behavioral disturbance; R65.20 Severe sepsis without septic shock; G30.9 Alzheimer's disease, unspecified; F29 Unspecified psychosis not due to a substance or known physiological condition; F32.9 Major depressive disorder, single episode, unspecified; Z79.899 Other long term (current) drug therapy; E86.0 Dehydration; R73.9 Hyperglycemia, unspecified; K21.9 Gastro-esophageal reflux disease without esophagitis; F22 Delusional disorders; I48.91 Unspecified atrial fibrillation; I25.10 Atherosclerotic heart disease of native coronary artery without angina pectoris; F39 Unspecified mood [affective] disorder; J44.9 Chronic obstructive pulmonary disease, unspecified; Z86.73 Personal history of transient ischemic attack (TIA), and cerebral infarction without residual deficits
CPT/HCPCS: 36415; 70450-TC; 71045-TC; 80048-TC; 80053-TC; 80061-TC; 80076-TC; 80162-TC; 80164-TC; 80202-TC; 81000-TC; 83605-TC; 83735-TC; 84100-TC; 84443-TC; 84484-TC; 85025-TC; 85730-TC; 87040-TC; 87081-TC; 87086-TC; 92611-TC; 93971-TC; A4216; A4606; C9113; J2185; J3370; J3475; J3490; J7030; J7050; J7060; Z7610

== ENCOUNTER 2017-12-26 09:14 | Outpatient (CLI) | payer MEDICARE, OTHER ==
[~2017-12-26 09:14] MED LIST: ACET-868 PO; CHOL200026 PO; DEXT15DR6 EACHEYE; DIGO250T PO; DILT180C66 PO; DIVA125C PO; IPRA0.2S49 IH; LEVA1.2528 IH; MAG30ORA PO; MIRT15TA PO; MULT-447 PO; NA P133E RC; ONDA4TAB5 PO; PANT40TA2 PO; RISP1TAB27 PO; RISP2TAB5 PO; RIVA10TA PO; SACC250C PO; TEMA15CA PO
== END 2017-12-26 23:59 | disposition home or self-care (01) ==
LOC: CT 09:14
DX: I71.2 Thoracic aortic aneurysm, without rupture (principal); R91.8 Other nonspecific abnormal finding of lung field
CPT/HCPCS: 71250-TC

== ENCOUNTER 2018-07-24 08:04 | Inpatient (IN) | payer MEDICARE, OTHER ==
[~2018-07-24] VITALS: Ht 157.5 cm; Wt 64.4 kg
[~2018-07-24 08:04] MED LIST changes: -DIVA125C PO; +DIVA125C2 PO
[2018-07-24] MEDS ORDERED: CEFTRIAXONE 1GM BAG (ER ONLY) 50 ML IV ONE ×2 (08:30→08:35)
[2018-07-24] MEDS ORDERED: IV NS 0.9% 1,000 ML BAG IV ONE ×2 (08:30→09:00)
[2018-07-24 08:42] LABS: BASOPHILS % (AUTO) 0.2 % (0.0-2.0); EOSINOPHILS % (AUTO) 0.1 % (0.0-6.0); HEMATOCRIT 37 % (39-51); HEMOGLOBIN 11.6 g/dL (13.5-17.5); LYMPHOCYTES # (AUTO) 1.3 /CMM (0.8-4.8); LYMPHOCYTES % (AUTO) 6.3 % (20.0-44.0); MEAN CORPUSCULAR HGB CONC 32 g/dl (31.0-36.0); MEAN CORPUSCULAR VOLUME 96 fL (80-96); MONOCYTES # (AUTO) 0.8 /CMM (0.1-1.30); MONOCYTES % (AUTO) 3.9 % (2.0-12.0); NEUTROPHILS # (AUTO) 18.1 /CMM (1.8-8.9); NEUTROPHILS % (AUTO) 89.5 % (43.0-81.0); PLATELET COUNT (AUTO) 358 /CMM (150-450); RED BLOOD CELL COUNT(AUTO) 3.84 MIL/uL (4.5-6.0); WHITE BLOOD COUNT (AUTO) 20.2 K/uL (4.3-11.0)
[2018-07-24 08:56] LABS: LYMPHOCYTES % (MANUAL) 8 % (16-48); MONOCYTES % (MANUAL) 5 % (0-11.0); NEUTROPHILS % (MANUAL) 87 (42-76)
[2018-07-24 09:04] LABS: ALBUMIN 2.8 g/dL (3.4-5.0); BILIRUBIN,DIRECT 0.6 mg/dL (0.0-0.2); BILIRUBIN,TOTAL 1.2 mg/dL (0.2-1.0); TOTAL PROTEIN, SERUM 7.2 g/dL (6.4-8.2)
[2018-07-24] MEDS ORDERED: MAGN400O6 PO (09:08)
[2018-07-24] MEDS ORDERED: RISP0.2515 PO (09:08)
[2018-07-24] MEDS ORDERED: MULT-447 PO (09:08)
[2018-07-24] MEDS ORDERED: AMIN30LI2 PO (09:08)
[2018-07-24] MEDS ORDERED: TAMS-12 PO (09:08)
[2018-07-24] MEDS ORDERED: CALC650T4 PO (09:08)
[2018-07-24 09:22] LABS: CARBON DIOXIDE 25 mmol/L (21-32); CHLORIDE 107 mmol/L (98-107); CREATININE 1.8 mg/dL (0.6-1.3); GLUCOSE 170 mg/dL (74-106); POTASSIUM 4.2 mmol/L (3.5-5.1); SODIUM SERUM 146 mmol/L (136-145); UREA NITROGEN, BLOOD 61 mg/dL (7-18)
[2018-07-24] MEDS ORDERED: DILTIAZEM HCL 25 MG IV ONE (09:22)
--- NOTE | 2018-07-24 09:25 | NUR ---
Diltiazem given as ordered. NO acute changes. Status quo. VS
[2018-07-24] MEDS: VANCOMYCIN 1 GM in IV NS 0.9% 250 ML IV SCH ×3 (09:30→11:31)
[2018-07-24] MEDS ORDERED: DILTIAZEM HCL 25 MG IV IV ONE ×3 (09:30→11:30)
[2018-07-24] MEDS ORDERED: LEVOFLOXACIN 750 MG /D5W 150ML PIGGYBACK IV ONE (09:30)
[2018-07-24] MEDS ORDERED: LEVOFLOXACIN 750 MG /D5W 150ML 750 MG in PREMIX 1 EA IV ONE (10:00)
--- NOTE | 2018-07-24 10:07 | NUR ---
GOT [facility] BED 108
--- NOTE | 2018-07-24 11:15 | NUR ---
For admission to [facility]- Repeat Lactate pending remains of AF with HR 130s MD notified No current orders. Report/Nurse Knowledge excharge with SYDNI Solano. NO acute distress no untoward changes transported to [facility] w/BOBBI Bassett
[2018-07-24 11:30] VITALS: BP 102/82
--- NOTE | 2018-07-24 11:30 | NUR ---
[facility] RN NOTE: RECEIVED PATIENT IN ROOM 108 AND REPORT WAS GIVEN BY KERWIN RANGEL RN. PATIENT WAS TRANSFERRED VIA GURNEY AWAKE, BUT CONFUSED. RESPIRATION WAS EVEN AND UNLABORED AND WAS NOTED WITH O2 2L/MIN VIA NC, BUT PATIENT WAS REMOVING THE NC, BUT SATURATING 96%. NO FACIAL GRIMACING NOTED. COMPLETE BODY ASSESSMENT WAS DONE. REX THAKKAR WAS PRESENT AT THE UNIT AND MADE AWARE OF THE PATIENT'S ADMISSION IN ROOM 108. PATIENT WAS KEPT ON COMFORTABLE POSITION WITH HOB ELEVATED AT 35 DEGREES. BED ALARMED AND LOCKED AT ALL TIMES. CALL LIGHT WITHIN REACH. NEEDS ANTICIPATED. AWAITING FOR ADMISSION ORDER FROM REX THAKKAR.
--- NOTE | 2018-07-24 11:45 | NUR ---
[facility] RN NOTE: CALLED AND SPOKE WITH REINA KELLY RE: THE CARDIZEM DUE AT 1130. HE WAS INFORMED THAT THE MEDICATION WAS UNABLE TO SEE IN THE OMNICELL. PER REINA KELLY THE MEDICATION WAS AN ER ORDER AND SHOULD NOT BE CARRIED TO THE UNIT. CARDIZEM IV WAS NOT GIVEN @1130. REX THAKKAR WAS MADE AWARE.
[2018-07-24 12:00] VITALS: BP 102/82
--- NOTE | 2018-07-24 12:10 | NUR ---
[facility] RN NOTE: PATIENT'S SONSTAN PRESENT AT THE BEDSIDE AND MADE HIM AWARE THAT THE PATIENT'S ASSIGNED CAMPAIGN MANAGEMENT SPECIALIST FOR TODAY WAS AWARE ABOUT THE PATIENT'S ADMISSION TO THE UNIT. INFORMATION WAS GATHERED WITH THE SONSTAN.
[2018-07-24] MEDS ORDERED: IV NS 0.9% 1,000 ML IV PRN (13:11)
[2018-07-24] MEDS ORDERED: ONDANSETRON HCL/PF 4 MG/2 ML VIAL IVP PRN (13:30)
[2018-07-24] MEDS ORDERED: ACETAMINOPHEN 325 MG TABLET PO PRN ×2 (13:30)
[2018-07-24] MEDS ORDERED: MAGNESIUM HYDROXIDE 30 ML UDC PO PRN (13:30)
[2018-07-24] MEDS ORDERED: ZOLPIDEM TARTRATE 5 MG TABLET PO PRN (13:30)
[2018-07-24] MEDS ORDERED: HYDROCODONE/APAP 5/325MG 1 EACH TABLET PO PRN (13:30)
[2018-07-24] MEDS ORDERED: Z GUARD REMEDY 2 OZ OINT TP PRN (13:30)
[2018-07-24] MEDS ORDERED: NA PHOS,M-B/NA PHOS,DI-BA 1 EA ENEMA RC PRN (13:30)
[2018-07-24] MEDS ORDERED: DEXTROSE 50%-WATER 50 ML DISP.SYRIN IV PRN (13:30)
[2018-07-24] MEDS ORDERED: MAG HYDROX/AL HYDROX/SIMETH 30 ML UDC PO PRN (13:30)
[2018-07-24] MEDS ORDERED: FEE PK DOSING 1 MIN EA MC ONE ×2 (14:18→14:27)
[2018-07-24] MEDS ORDERED: MORPHINE SULFATE INJ 4 MG/ML DISP.SYRIN IV PRN (14:30)
--- NOTE | 2018-07-24 15:30 | NUR ---
[facility] RN NOTE: DR. BOWENS PRESENT IN THE UNIT AND MADE HIM AWARE THAT THE PATIENT HAS BEEN CONSULTED FOR HIM DUE TO THE A. FIB UNCONTROLLED. AWAITING FOR MD ORDERS.
[2018-07-24 16:00] VITALS: BP 105/65
[2018-07-24] MEDS ORDERED: PIPERACILLIN /TAZOBACTAM 2.25 G in IV D5W 50 ML IV ONE (16:00)
--- NOTE | 2018-07-24 16:00 | NUR ---
[facility] RN NOTE: DR. BOWENS WAS MADE AWARE THAT THE PATIENT WAS BEING UNCOOPERATIVE DURING THE ECHOCARDIOGRAM TEST. PER MD, HE SAID "OK, TRY AGAIN WHEN HE IS CALM."
[2018-07-24] MEDS ORDERED: RIVAROXABAN 10 MG TABLET PO SCH (17:00)
[2018-07-24] MEDS: RIVAROXABAN 15 MG TABLET PO SCH (17:00)
[2018-07-24] MEDS ORDERED: LORAZEPAM INJ 2 MG/ML VIAL IV ONE (17:00)
[2018-07-24] MEDS: PROSOURCE / PROSTAT (PYXIS) 30 ML UDC PO SCH (17:00)
[2018-07-24] MEDS: BLOOD SUGAR DIAGNOSTIC 1 EACH STRIP IN SCH ×2 (17:49→23:17)
[2018-07-24] MEDS: METOPROLOL TARTRATE 25 MG TABLET PO SCH ×2 (18:00→23:35)
--- NOTE | 2018-07-24 19:30 | NUR ---
[facility] RN NOTE: REPORT GIVEN TO PM SHIFT NURSE FOR CONTINUITY OF CARE. PATIENT REFUSED TO TAKE HIS DINNER MEAL. QUIET AT THIS TIME. PATIENT STILL NOTED WITH CONFUSION AND KEPT REMOVING HIS HEART MONITOR.
--- NOTE | 2018-07-24 19:40 | NUR ---
POWERHOUSE MECHANIC INITIAL NOTES, RECEIVED PATIENT IN BED, AWAKE, CONFUSED AT THIS TIME, UNABLE TO EXPRESS NEEDS, BREATHING EVEN AND UNLABORED, NO SOB/ACUTE DISTRESS NOTED, 02 SAT 98% AT RA, AF 130-140S IN CONCERT OR LECTURE HALL MANAGER, PER NURSE HR DURING THE DAY 130S-140S, SEEN BY DRAWING SUPERVISOR DURING THE DAY WITH NO NEW ORDERS, IV ACCESS IN RIGHT FA PATENT AND INTACT, NO IVF AT THIS TIME, ALL SAFETY PRECAUTIONS IN PLACED, CALL LIGHT W/I REACH, WILL CONTINUE TOP MONITOR CLOSELY.
[2018-07-24 20:00] VITALS: BP 92/55
--- NOTE | 2018-07-24 20:27 | NUR ---
PHYSICIAN PRIMARY CARE SPORTS MEDICINE NOTES, NOTED PATIENT WITH HR HIGH 150-160S, AND BP 92/55, PATIENT NOTED RESTLESSNESS AND CONFUSED, PAGED DERANAMIKAIAN CUSTOMER RELATIONS SPECIALIST, AWAITING FOR MD TO CALL BACK
--- NOTE | 2018-07-24 20:32 | NUR ---
DIRECTOR OF REGULATORY AFFAIRS NOTES, RECEIVED CALL BACK FROM FAHEEM BLOOM CONVEYOR OPERATOR, WITH NEW ORDERS TO START NS 0.9% @ 100ML/HR, STAT EKG, AND TRANSFER TO ICU TO START AMIODARONE DRIP, AND MADE METAL PATTERNMAKER APPRENTICE AWARE.
--- NOTE | 2018-07-24 20:45 | NUR ---
CIRCULAR CLERK NOTES, GAVE REPORT TO ALEXY ICU NURSE REGARDING PATIENT AND NEW ORDERS FROM .
--- NOTE | 2018-07-24 20:50 | NUR ---
GREEN CHAIN OPERATOR NOTES, TRANSFERRED PATIENT TO ICU ROOM 251, WITH SENIOR ATTORNEY IN PLACED, NO ACUTE DISTRESS NOTED WITH OPTIMAL O2 SAT 98% RA AT THIS TIME, STILL WITH HR 150-160S.
[2018-07-24] MEDS: IV NS 0.9% 1,000 ML IV PRN (21:00)
--- NOTE | 2018-07-24 21:00 | NUR ---
LEARNING DEVELOPMENT SPECIALIST NOTE RECEIVED PT IN BED. A/O X1 AND NOTED WITH GARBLED WORDS AND CONFUSED/ RESTLESS. PUT ON O2 VIA NC 2LPM AND SATURATING WELL. PURSE LIPPED BREATHING NOTED. HOB ELEVATED AND ON ASPIRATION PRECAUTIONS. WILL START AMIODARONE DRIP PER ORDERS. IV RFA NOT FLUSHING WELL. WILL START NEW IV. BED ALARM ENABLED. CALL LIGHT WITHIN REACH. WILL CONTINUE TO MONITOR.
[2018-07-24] MEDS ORDERED: AMIODARONE 150 MG/3 ML VIAL IV ONE (21:16)
--- NOTE | 2018-07-24 21:20 | NUR ---
PUSH BUTTON SWITCH ASSEMBLER NOTES, CALLED EGG BUYER DR BOWENS TO INFORM BOUT PATIENT BEEN TRANSFERRED TO ICU, PER DOSIMETRIST MD GLOBAL COMMODITY MANAGER WILL BE PAGED AND CALL BACK.
[2018-07-24] MEDS ORDERED: AMIODARONE 150 MG in IV D5W 100 ML IV ONE ×2 (21:30→21:38)
[2018-07-24] MEDS ORDERED: AMIODARONE 900 MG in IV D5W 482 ML IV PRN (21:30)
[2018-07-24 23:00] VITALS: BP 105/48
[2018-07-24] MEDS: PIPERACILLIN /TAZOBACTAM 3.375 G in IV D5W 100 ML IV SCH (23:16)
[2018-07-24] MEDS: TAMSULOSIN 0.4 MG CAP.SR.24H PO SCH (23:16)
[2018-07-24] MEDS: LORAZEPAM 0.5 MG TABLET PO PRN (23:16)
[2018-07-24 23:30] VITALS: BP 121/102
[2018-07-24] MEDS: INSULIN REGULAR, HUMAN 100 UNIT/ML 3 ML VIAL SQ PRN (23:53)
[2018-07-25] VITALS (26 sets, daily range): BP systolic 97–137; BP diastolic 58–99
[2018-07-25 00:44] LABS: ABG BASE EXCESS -2.8 mmol/L; ABG OXYGEN SATURATION 96.2 % (92.0-98.5); ABG PCO2 31.1 mmHg (35.0-45.0); ABG PH 7.437 (7.350-7.450); ABG PO2 96.2 mmHg (75.0-100.0); AaDO2 66.7 mmHg; COHb 0.1 % (0.5-1.5); MetHb 0.3 % (0.0-1.5); O2Hb 95.8 % (94.0-97.0); SITE, ABG Left Radial; VENT MODE, BG Nasal Cannula
--- NOTE | 2018-07-25 00:45 | NUR ---
STAT ABG DONE. NOTIFIED ALEXY TROY WITH THE RESULT.
--- NOTE | 2018-07-25 01:00 | NUR ---
WHEELCHAIR RENTAL CLERK NOTE SPOKE WITH TRANSPORT TECH DR. PRECIADO AND NOTIFIED HIM OF PT RESTLESS BEHAVIOR, REMOVING IV'S AND EQUIPMENT. WITH ORDERS TO PUT ON BILATERAL SOFT WRIST RESTRAINTS, HERNANDEZ CATHETER AND DO STAT ABG. ORDERS NOTED AND CARRIED OUT.
--- NOTE | 2018-07-25 04:00 | NUR ---
GLASS CALIBRATOR NOTE COLLECTED URINE FOR CULTURE. INFORMED LAB FOR SWATCH FOLDER.
[2018-07-25 05:29] LABS: HEMATOCRIT 33 % (39-51); HEMOGLOBIN 10.7 g/dL (13.5-17.5); LYMPHOCYTES # (AUTO) 1.1 /CMM (0.8-4.8); LYMPHOCYTES % (AUTO) 6.3 % (20.0-44.0); MEAN CORPUSCULAR HGB CONC 33 g/dl (31.0-36.0); MEAN CORPUSCULAR VOLUME 94 fL (80-96); MONOCYTES # (AUTO) 1.1 /CMM (0.1-1.30); MONOCYTES % (AUTO) 5.9 % (2.0-12.0); NEUTROPHILS # (AUTO) 15.8 /CMM (1.8-8.9); NEUTROPHILS % (AUTO) 87.8 % (43.0-81.0); PLATELET COUNT (AUTO) 295 /CMM (150-450); RED BLOOD CELL COUNT(AUTO) 3.49 MIL/uL (4.5-6.0)
[2018-07-25 05:35] LABS: APPEARANCE,URINE TURBID (CLEAR); BILIRUBIN,URINE NEGATIVE (NEGATIVE); BLOOD, URINE 2+ Ery/uL (NEGATIVE); COLOR,URINE YELLOW (YELLOW); KETONES,URINE NEGATIVE (NEGATIVE); LEUKOCYTE ESTERASE ,URINE NEGATIVE (NEGATIVE); NITRITE, URINE NEGATIVE (NEGATIVE); PH,URINE 5.5 (5.0-8.0); PROTEIN,URINE TRACE mg/dl (NEGATIVE); UGLUCOSE NEGATIVE (NEGATIVE); UROBILINOGEN,URINE 0.2 EU/dL (0.2)
[2018-07-25 05:36] LABS: CHOLESTEROL 104 mg/dL (<200); HDL CHOLESTEROL 15 mg/dL (40-60); LDL 79 mg/dL (0-99); TRIGLYCERIDES 92 mg/dL (30-150)
[2018-07-25 05:40] LABS: CALCIUM, SERUM 7.8 mg/dL (8.5-10.1); CARBON DIOXIDE 22 mmol/L (21-32); CHLORIDE 109 mmol/L (98-107); CREATININE 1.5 mg/dL (0.6-1.3); GLUCOSE 112 mg/dL (74-106); MAGNESIUM 2.3 mg/dL (1.8-2.4); PHOSPHORUS 3.5 mg/dL (2.5-4.9); POTASSIUM 3.9 mmol/L (3.5-5.1); SODIUM SERUM 145 mmol/L (136-145); UREA NITROGEN, BLOOD 49 mg/dL (7-18)
[2018-07-25 05:55] LABS: BACTERIA,URINE None seen /HPF (None Seen); URINE AMORPHOUS URATE Many /HPF (None Seen); WBC,URINE 0-2 /HPF (0-3)
[2018-07-25] MEDS: METOPROLOL TARTRATE 25 MG TABLET PO SCH ×3 (06:00→17:12)
--- NOTE | 2018-07-25 07:10 | NUR ---
RN INITIAL NOTES RECEIVED PT AWAKE, A/OX1. ON 02 AT 2LPM VIA NC. HOB ELEVATED. KENDALL MIDLINE IN PLACE. PT ON AMIO DRIP AT 0.5MG/MIN. PT STILL IN A.FIB UNCONTROLLED. IVF INFUSING. FC IN PLACE. NO HEMATURIA NOTED. PT REPOSITIONED. BLE ELEVATED. WILL MONITOR.
--- NOTE | 2018-07-25 07:29 | NUR ---
ASSET AVAILABILITY LEADER NOTE NO ACUTE DISTRESS NOTED. PT REMAINS IN AFIB @ 106 HR. PT STILL ON BILATERAL SOFT WRIST RESTRAINTS WITH NO DISCOLORATION NOTED AND RADIAL PULSES PALPABLE BILATERALLY. HOB ELEVATED. IV KENDALL MIDLINE IN PLACE WITH AMIODARONE AND FLUIDS INFUSING AT THIS TIME. HERNANDEZ IN PLACE AND DRAINING. BED ALARM ENABLED. WILL ENDORSE TO NEXT SHIFT FOR CONTINUITY OF CARE.
[2018-07-25] MEDS ORDERED: PANTOPRAZOLE 40 MG TABLET.DR PO SCH (07:30)
[2018-07-25] MEDS: BLOOD SUGAR DIAGNOSTIC 1 EACH STRIP IN SCH ×4 (08:31→21:00)
[2018-07-25] MEDS: CHOLECALCIFEROL 1,000 UNIT TABLET (VIT D3) PO SCH (08:31)
[2018-07-25] MEDS: MULTIVITAMINS,THERAGRAN 1 UDTAB TABLET PO SCH (08:31)
[2018-07-25] MEDS: PANTOPRAZOLE 40 MG TABLET.DR PO SCH (08:32)
[2018-07-25] MEDS: MAGNESIUM HYDROXIDE 30 ML UDC PO SCH (08:32)
[2018-07-25] MEDS: LACTOBACILLUS RHAMNOSUS GG 1 EACH CAP.SPRINK PO SCH ×2 (08:40→16:37)
[2018-07-25] MEDS: PROSOURCE / PROSTAT (PYXIS) 30 ML UDC PO SCH ×2 (08:58→16:45)
[2018-07-25] MEDS ORDERED: risperiDONE 1 MG TABLET PO SCH (09:00)
--- NOTE | 2018-07-25 09:00 | NUR ---
RN NOTES 0845 SEEN AND EXAMINED BY ARIANE VIEYRA NP. AWARE OF CURRENT MEDS, LAB VALUES AND CXR RESULT. PT OM AMIO DRIP, HR UNCONTROLLED. PT FOR PULMO AND PSYCH CONSULT. SON AT BEDSIDE NOTIFIED. 0900 SEEN AND EXAMINED BY DR BUCKLEY. REVIEWED H&P, CURRENT LAB VALUES AND IMAGING STUDIES. PT ON 02 VIA NC. KEPT HOB ELEVATED. WILL MONITOR.
[2018-07-25] MEDS: PIPERACILLIN /TAZOBACTAM 3.375 G in IV D5W 100 ML IV SCH ×2 (09:14→20:00)
[2018-07-25] MEDS: IV NS 0.9% 1,000 ML IV PRN (09:36)
[2018-07-25] MEDS ORDERED: OLANZAPINE 10 MG VIAL IM PRN (10:30)
[2018-07-25] MEDS ORDERED: VANCOMYCIN HCL 0.75 GM in IV D5W 250 ML IV SCH (11:00)
[2018-07-25] MEDS ORDERED: CALCIUM LACTATE 650 MG PO SCH (13:00)
[2018-07-25] MEDS ORDERED: DIGOXIN INJ 0.5 MG/2 ML AMPUL IV ONE (14:30)
--- NOTE | 2018-07-25 14:30 | NUR ---
RN NOTES SEEN AND EXAMINED BY DR BOWENS. PT REMAINS ON AMIO DRIP AT 0.5MG/MIN. PT'S HR STILL UNCONTROLLED. REVIEWED CURRENT LAB VALUES AND IMAGING STUDIES. ORDERED DIGOXIN IVP X1. WILL CONTINUE TO MONITOR.
[2018-07-25] MEDS: CALCIUM CARB 600MG /VIT D 1 EACH TABLET PO SCH (14:41)
--- NOTE | 2018-07-25 15:07 | NUR ---
RN NOTES ARIANE VIEYRA NP IN THE UNIT. NOTIFIED REGARDING BLE VENOUS DOPPLER RESULT, RIGHT LEG POSITIVE FOR DVT. PT ON XARELTO 15MG QD. NO OTHER ORDER MADE. WILL CONTINUE TO MONITOR.
[2018-07-25] MEDS: RIVAROXABAN 15 MG TABLET PO SCH (16:38)
[2018-07-25] MEDS: risperiDONE 1 MG TABLET PO SCH (16:38)
[2018-07-25] MEDS: ENSURE ENLIVE CHOC 237 ML CAN PO SCH (17:00)
--- NOTE | 2018-07-25 17:58 | NUR ---
RN NOTES PT TRANSFERRED TO ROOM 115-1. PT VS WNL. NO SOB NOTED. NO RESPIRATORY DISTRESS NOTED. LAURA, RN TOOK OVER PT'S CARE. PT IN STABLE CONDITION.
--- NOTE | 2018-07-25 18:00 | NUR ---
RN NOTES PATIENT AWAKE, ALERT, ORIENTED X 1, WITH EPISODE OF FORGETFULNESS NOT ON ANY FORM OF DISTRESS. NO SIGN OF PAIN NOTED AT THIS TIME. ON NASAL CANNULA WITH O2 @3L, SATURATING WELL. PLACES ON MONITOR: UNCONTROLLED AFIB HR HR 112 AT THHIS TIME. MID LINE ON THE RIGHT ARM G 18: INTACT AND IN PLACE, PATENT ON FLUSHING. WITH ONGOING AMIODARONE AT .5MCG/MIIN AND NS AT 100 C/HR. BILATERAL SOFT RESTRAINTS ON, NO SKIN BREAKDOWN OR SKIN DISCOLORATION NOTED, PULSES PALPABLE. SAFETY PRECAUTIONS OBSERVED AND MAINTAINED IN PLACE. CALL LIGHT IN REACH.WILL CONTINUE TO MONITOR.
--- NOTE | 2018-07-25 19:44 | NUR ---
RN NOTES PATIENT ENDORSED FOR CONTINUITY OF CARE. NO ACUTE CHANGES WITHIN THE SHIFT. ALL NURSING NEEDS ATTENDED AND MET. SAFETY PRECAUTIONS IN PLACE AT ALL TIMES. CALL LIGHT WITHIN REACH
--- NOTE | 2018-07-25 19:44 | NUR ---
TD RN NOTES RECEIVED PT ON BED. ON NASAL CANNULA 2LPM NO RESPIRATORY DISTRESS NOTED. PT ON RESTRAINS BILATERAL SOFT ON BOTH ARMS. ON TELE MONITOR AFIB 110. PT A/O X 2 CONFUSED. WITH F/C DRAINING WELL. KENDALL MIDLINE PATENT AND INTACT. WITH AMIODARONE RUNNING AT .5MG . HEAD OF BED ELEVATED. SIDE RAILS UP. CALL LIGHT WITHIN REACH.BED ALARM ON. WILL CONTINUE TO MONITOR PT CLOSELY.
[2018-07-25] MEDS: LORAZEPAM 0.5 MG TABLET PO PRN (20:55)
[2018-07-25] MEDS: TAMSULOSIN 0.4 MG CAP.SR.24H PO SCH (21:00)
[2018-07-26] VITALS (8 sets, daily range): BP systolic 103–114; BP diastolic 67–81
[2018-07-26] MEDS: METOPROLOL TARTRATE 25 MG TABLET PO SCH ×2 (00:26→05:19)
[2018-07-26] MEDS: VANCOMYCIN 0.75 GM in IV D5W 250 ML IV SCH ×2 (04:14→23:17)
[2018-07-26] MEDS: IV NS 0.9% 1,000 ML IV PRN (04:14)
--- NOTE | 2018-07-26 06:29 | NUR ---
TD RN NOTES NO ACUTE CHANGES NOTED THROUGHOUT THE SHIFT. DUE MEDS GIVEN. PROVIDED COMFORT AND SAFETY. HEAD OF BED ELEVATED. SIDE RAILS UP. CALL LIGHT WITHIN REACH. WILL ENDORSE TO THE AM NURSE FOR CONTINUITY OF CARE.
[2018-07-26 07:00] LABS: CALCIUM, SERUM 7.6 mg/dL (8.5-10.1); CARBON DIOXIDE 21 mmol/L (21-32); CHLORIDE 111 mmol/L (98-107); CREATININE 1.1 mg/dL (0.6-1.3); GLUCOSE 134 mg/dL (74-106); POTASSIUM 3.7 mmol/L (3.5-5.1); SODIUM SERUM 144 mmol/L (136-145); UREA NITROGEN, BLOOD 36 mg/dL (7-18)
--- NOTE | 2018-07-26 07:30 | NUR ---
ALEXANDRA RN AM NOTES RECEIVED PT IN BED. PT A/O X 2 CONFUSED.ON NASAL CANNULA 2LPM NO RESPIRATORY DISTRESS NOTED. ON TELE MONITOR AFIB 106. NO SIGNS OF PAIN, KENDALL MIDLINE PATENT AND INTACT. WITH NS AT 100 ML/HR. SITE CLEAR. PT ON SOFT RESTRAINTS BILATERAL WRISTS. RELEASED AND CHECKED PULSES/CIRCULATION THEN EVERY 2 HOURS. WITH F/C DRAINING WELL. HEAD OF BED ELEVATED. SIDE RAILS UP. CALL LIGHT WITHIN REACH.BED ALARM ON. WILL CONTINUE TO MONITOR PT CLOSELY.
[2018-07-26] MEDS: BLOOD SUGAR DIAGNOSTIC 1 EACH STRIP IN SCH ×4 (08:15→22:25)
[2018-07-26] MEDS: PANTOPRAZOLE 40 MG TABLET.DR PO SCH (08:22)
--- NOTE | 2018-07-26 08:22 | NUR ---
TD RN NOTES ACCUCHECK DONE. BS 106 MG/DL. NO INSULIN COVERAGE GIVEN
[2018-07-26] MEDS: CHOLECALCIFEROL 1,000 UNIT TABLET (VIT D3) PO SCH (09:00)
[2018-07-26] MEDS: PROSOURCE / PROSTAT (PYXIS) 30 ML UDC PO SCH ×2 (09:00→16:26)
[2018-07-26] MEDS: LACTOBACILLUS RHAMNOSUS GG 1 EACH CAP.SPRINK PO SCH ×2 (09:00→16:24)
[2018-07-26] MEDS: MULTIVITAMINS,THERAGRAN 1 UDTAB TABLET PO SCH (09:00)
[2018-07-26] MEDS: risperiDONE 1 MG TABLET PO SCH ×3 (09:00→16:24)
[2018-07-26] MEDS: MAGNESIUM HYDROXIDE 30 ML UDC PO SCH (09:00)
[2018-07-26] MEDS: CALCIUM CARB 600MG /VIT D 1 EACH TABLET PO SCH (09:00)
[2018-07-26] MEDS: ENSURE ENLIVE CHOC 237 ML CAN PO SCH ×2 (09:12→17:46)
[2018-07-26] MEDS: PIPERACILLIN /TAZOBACTAM 3.375 G in IV D5W 100 ML IV SCH ×2 (09:16→17:47)
--- NOTE | 2018-07-26 09:30 | NUR ---
ALEXANDRA TROY NOTES DUE MEDS GIVEN Addendum: 07/26/18 at 1053 by CHIQUITA CALLE RN ALEXANDRA RN NOTES ATTEMPTED TO GIVE MEDICATIONS BUT REFUSED TO OPEN HIS MOUTH.
--- NOTE | 2018-07-26 09:50 | NUR ---
TD RN NOTES CHECKED ON PATIENT. STILL REFUSE TO EAT AND TAKE MEDICATIONS
--- NOTE | 2018-07-26 10:45 | NUR ---
TD RN NOTES SPOKE WITH KIMBER DANIELS TO DC AMIODARONE DRIP, WILL GIVE METOPROLOL 2.5 MG IV Q 6 HOURS.
[2018-07-26] MEDS: METOPROLOL TARTRATE INJ 5 MG/5 ML AMPUL IVP SCH ×3 (11:36→23:00)
--- NOTE | 2018-07-26 11:45 | NUR ---
TD RN NOTES ACCUCHECK DONE. BS 110 MG/DL. NO INSULIN COVERAGE GIVEN
[2018-07-26] MEDS ORDERED: METOPROLOL TARTRATE INJ 5 MG/5 ML AMPUL IVP PRN (14:00)
[2018-07-26] MEDS ORDERED: DIGOXIN INJ 0.5 MG/2 ML AMPUL IV ONE (14:00)
[2018-07-26] MEDS: RIVAROXABAN 15 MG TABLET PO SCH (16:24)
--- NOTE | 2018-07-26 17:52 | NUR ---
TD RN NOTES ACCUCHECK DONE. BS 121 MG/DL. NO INSULIN COVERAGE GIVEN
[2018-07-26] MEDS: BENZTROPINE MESYLATE (1 MG) 1 MG TABLET PO SCH (17:59)
[2018-07-26] MEDS ORDERED: diphenhydrAMINE HCL 25 MG CAPSULE PO ONE (18:30)
--- NOTE | 2018-07-26 18:53 | NUR ---
TD RN CLOSING NOTES PT RESTING IN BED. PT A/O X 1 CONFUSED.ON NASAL CANNULA 2LPM NO RESPIRATORY DISTRESS NOTED. ON TELE MONITOR AFIB 107. NO SIGNS OF PAIN, RIGHT HAND IV G 20 PATENT AND INTACT. WITH NS AT 50 ML/HR. SITE CLEAR. PT ON SOFT RESTRAINTS BILATERAL WRISTS. RELEASED AND CHECKED PULSES/CIRCULATION THEN EVERY 2 HOURS. WITH F/C DRAINING WELL 600 ML OUTPUT. HEAD OF BED ELEVATED. SIDE RAILS UP. CALL LIGHT WITHIN REACH.BED ALARM ON. TURNED AND REPOSITIONED Q 2HOURS, PM CARE DONE. ALL NEEDS MET. WILL ENDORSE TO NEXT SHIFT FOR A[place]USTIN.
--- NOTE | 2018-07-26 20:00 | NUR ---
KWAME RN NOTES RECEIVED PTS IN BED AWAKE EPISOSE OF AGITATION NOTED , V/S STABLE AFEBRILE ,ON TELE MONITOR AFIB -110 ON THE MONITOR NO SOB NO DISTRESS NOTED BREATHING EVEN NON LABORED , NO C/O OF PAIN .ALL DUE MEDS GIVEN ORDERED CALL LIGHT WITHIN REACH , ON IVF OF NS AT 50CC/HR WELL TOLERATED , WITH BILATERAL RESTRAINT D/T TO PREVENT PULLING OF INVASIVE TUBING ,ALL NEEDS ATTENDED TOO .KEPT PTS CLEAN DRY AND COMFORTABLE.
[2018-07-26] MEDS: TAMSULOSIN 0.4 MG CAP.SR.24H PO SCH (22:19)
[2018-07-26] MEDS: INSULIN REGULAR, HUMAN 100 UNIT/ML 3 ML VIAL SQ PRN (22:26)
--- NOTE | 2018-07-26 22:35 | NUR ---
KWAME RN NOTES BLOOD SUGAR FOR 10PM IS 105 NO COVERAGE GIVEN PER SLIDING SCALE
--- NOTE | 2018-07-26 23:50 | NUR ---
MICR[employer] EQUIPMENT INSPECTOR NOTES METOPROLOL DOSE AT 2300 WAS HOLD D/T BP 100/46 , WILL CONTINUE TO MONITOR PTS.
[2018-07-27] VITALS (8 sets, daily range): BP systolic 100–131; BP diastolic 46–92
[2018-07-27] MEDS: PIPERACILLIN /TAZOBACTAM 3.375 G in IV D5W 100 ML IV SCH ×3 (01:11→17:03)
[2018-07-27] MEDS: IV NS 0.9% 1,000 ML IV PRN (04:23)
[2018-07-27] MEDS: METOPROLOL TARTRATE INJ 5 MG/5 ML AMPUL IVP SCH ×2 (05:00→10:15)
--- NOTE | 2018-07-27 06:39 | NUR ---
KWAME RN NOTES PTS IN BED REMAINS ON MARTHA SOFT WRIST RESTRAINT, IVF OF NS AT 50CC.HR INFUSING WELL ,NO SOB NO DISTRESS NOTED , ALL NEEDS ATTENDED TOO CALL LIGHT WITHIN REACH, KEPT PTS CLEAN DRY AND COMFORTABLE, WILL ENDORSE TO RN DAY SHIFT FOR CONTINUITY OF CARE.V/S STABLE AFEBRILE
--- NOTE | 2018-07-27 07:00 | NUR ---
DIRECTOR ONCOLOGY OPENING NOTES RECEIVED PATIENT AWAKE IN BED A/O X-1 CONFUSED AND SHOUTING UNCOMPREHENDING WORDS . BILATERAL WRIST RESTRAINTS FOR PULLING AT TUBES CHECKED NO SKIN DISCOLORATION OR BREAKDOWN. NO SIGNS OR SYMPTOMS OF RESPIRATORY DISTRESS OR ACUTE PAIN NOTED. IVF IN (R) HAND NS @ 50ML/HR. SAFETY PRECAUTIONS IN PLACE CALL LIGHT WITHIN REACH WILL CONT TO MONITOR
[2018-07-27 07:01] LABS: BASOPHILS % (AUTO) 0.3 % (0.0-2.0); EOSINOPHILS % (AUTO) 0.4 % (0.0-6.0); HEMATOCRIT 37 % (39-51); LYMPHOCYTES # (AUTO) 1.4 /CMM (0.8-4.8); LYMPHOCYTES % (AUTO) 10.3 % (20.0-44.0); MEAN CORPUSCULAR HGB CONC 33 g/dl (31.0-36.0); MEAN CORPUSCULAR VOLUME 95 fL (80-96); MONOCYTES # (AUTO) 0.7 /CMM (0.1-1.30); MONOCYTES % (AUTO) 4.9 % (2.0-12.0); NEUTROPHILS # (AUTO) 11.6 /CMM (1.8-8.9); NEUTROPHILS % (AUTO) 84.1 % (43.0-81.0); PLATELET COUNT (AUTO) 305 /CMM (150-450); RED BLOOD CELL COUNT(AUTO) 3.88 MIL/uL (4.5-6.0); WHITE BLOOD COUNT (AUTO) 13.7 K/uL (4.3-11.0)
[2018-07-27 07:27] LABS: ALANINE AMINOTRANSFERASE 172 U/L (12-78); ALKALINE PHOSPHATASE 83 U/L (46-116); ASPARTATE AMINOTRANSFERASE 114 U/L (15-37); BILIRUBIN,TOTAL 0.7 mg/dL (0.2-1.0); CALCIUM, SERUM 8.1 mg/dL (8.5-10.1); CARBON DIOXIDE 24 mmol/L (21-32); CHLORIDE 113 mmol/L (98-107); CREATININE 1.1 mg/dL (0.6-1.3); GLUCOSE 113 mg/dL (74-106); MAGNESIUM 2.3 mg/dL (1.8-2.4); PHOSPHORUS 2.7 mg/dL (2.5-4.9); POTASSIUM 3.7 mmol/L (3.5-5.1); SODIUM SERUM 146 mmol/L (136-145); TOTAL PROTEIN, SERUM 5.3 g/dL (6.4-8.2); UREA NITROGEN, BLOOD 27 mg/dL (7-18)
[2018-07-27] MEDS: BLOOD SUGAR DIAGNOSTIC 1 EACH STRIP IN SCH ×4 (07:39→22:37)
[2018-07-27 08:03] LABS: LYMPHOCYTES % (MANUAL) 10 % (16-48); MONOCYTES % (MANUAL) 5 % (0-11.0); NEUTROPHILS % (MANUAL) 85 (42-76)
[2018-07-27] MEDS: MAGNESIUM HYDROXIDE 30 ML UDC PO SCH (08:32)
[2018-07-27] MEDS: CALCIUM CARB 600MG /VIT D 1 EACH TABLET PO SCH (08:32)
[2018-07-27] MEDS: LACTOBACILLUS RHAMNOSUS GG 1 EACH CAP.SPRINK PO SCH ×2 (08:32→16:22)
[2018-07-27] MEDS: MULTIVITAMINS,THERAGRAN 1 UDTAB TABLET PO SCH (08:32)
[2018-07-27] MEDS: risperiDONE 1 MG TABLET PO SCH ×4 (08:32→16:22)
[2018-07-27] MEDS: BENZTROPINE MESYLATE (1 MG) 1 MG TABLET PO SCH ×3 (08:32→16:22)
[2018-07-27] MEDS: PANTOPRAZOLE 40 MG TABLET.DR PO SCH (08:33)
[2018-07-27] MEDS: CHOLECALCIFEROL 1,000 UNIT TABLET (VIT D3) PO SCH (08:33)
[2018-07-27] MEDS: RIVAROXABAN 15 MG TABLET PO SCH ×3 (08:33→16:23)
[2018-07-27] MEDS: ENSURE ENLIVE CHOC 237 ML CAN PO SCH ×2 (08:34→16:34)
--- NOTE | 2018-07-27 08:46 | NUR ---
[facility] DRIVER NOTES ATTEMPTED TO GIVE PATIENT MEDS IN [place]. PATIENT SPIT MEDS OUT
[2018-07-27] MEDS: PROSOURCE / PROSTAT (PYXIS) 30 ML UDC PO SCH ×2 (09:05→16:34)
--- NOTE | 2018-07-27 12:00 | NUR ---
PROCESSOR HELPER NOTES PATIENT CURRENTLY ON FULL LIQUID DIET. PATIENT GIVEN WATER COUGHING IMMEDIATELY LIQUID DRAINING FROM NOSE POSSIBLE ASPIRATION. OBTAINED ORDER FOR NPO EXCEPT MEDS AND SWALLOW EVALUATION
--- NOTE | 2018-07-27 14:30 | NUR ---
MEDS GIVEN LATE BY ARIANE VIEYRA PATIENT COMPLIANT WITH DOCTOR. RESTRAINTS REMOVED FOR 30 MINUTES
--- NOTE | 2018-07-27 15:30 | NUR ---
PATIENT REMOVED IV ORDER FOR MIDLINE TO BE PLACED. PICC NURSE APPLIED IN (L) BRACHIAL #[id number] GAUGE
[2018-07-27] MEDS: LORAZEPAM 0.5 MG TABLET PO SCH (16:22)
[2018-07-27] MEDS ORDERED: risperiDONE 1 MG TABLET PO SCH (17:00)
[2018-07-27] MEDS: VANCOMYCIN 0.75 GM in IV D5W 250 ML IV SCH (17:03)
[2018-07-27] MEDS: METOPROLOL TARTRATE 25 MG TABLET PO SCH (17:04)
--- NOTE | 2018-07-27 18:49 | NUR ---
STAFF TOXICOLOGIST CLOSING NOTES PATIENT A/O X1 CONFUSED SLOVENIAN AND ITALIAN SPEAKING NO SIGNS OR SYMPTOMS OF RESPIRATORY DISTRESS OR ACUTE PAIN. SKIN INTACT WITH SOME BRUISING NPO EXCEPT FOR MEDS AT THIS TIME UNTIL SWALLOW EVALUATION. IVF @ 50ML/HR IN (L) BRACHIAL # [id number] GAUGE. HERNANDEZ CATH IN PLACE DRAINING CLEAR YELLOW URINE. ORDER FOR 1:1 SITTER. CONTINUES TO BE AFIB IN THE 100'S ON MONITOR. ALL EVENING MEDS ADMINISTERED WITH NO ADVERSE REACTION. SAFETY PRECAUTIONS IN PLACE BED IN LOW POSITION CALL LIGHT WITHIN REACH WILL ENDORSE AUGUSTIN
--- NOTE | 2018-07-27 20:01 | NUR ---
balbir rn notes received pts in bed sleeping on tele afib on monitor , v/s stable afebrile no sob no distress noted , all due meds given as ordered , all needs attended too call light within reach ,kept pts clean dry and comfortable, on 1:1 sitter at bedside , on left brachial midline intact and patent with ivf of normal saline at 50cc/hr infusing well, f/c intact and patent draining with yellowish urine output, pts is npo except meds hob elevated for aspiration precaution, will continue to monitor pts.
--- NOTE | 2018-07-27 22:00 | NUR ---
KWAME RN NOTES BLOOD SUGAR FOR 10PM IS 107 =NO COVERAGE GIVEN PER SLIDING SCALE
[2018-07-27] MEDS: TAMSULOSIN 0.4 MG CAP.SR.24H PO SCH (22:33)
[2018-07-27] MEDS: INSULIN REGULAR, HUMAN 100 UNIT/ML 3 ML VIAL SQ PRN (22:38)
[2018-07-28] VITALS: BP 138/88
[2018-07-28] MEDS: METOPROLOL TARTRATE 25 MG TABLET PO SCH ×3 (00:23→11:30)
[2018-07-28] MEDS: PIPERACILLIN /TAZOBACTAM 3.375 G in IV D5W 100 ML IV SCH ×2 (00:24→08:31)
[2018-07-28 04:00] VITALS: BP 119/73
--- NOTE | 2018-07-28 06:16 | NUR ---
KWAME N NOTES PTSIN BED AWAKE AND RESPONSIVE ,ON TELE AFIB-120 ON THE MONITOR.NO SOB NO DISTRESS , WITH 1:1 SITTER AT BEDSIDE, ALL NEEDS ATTENDED TOO , PTS CALM AT THIS TIME ALL NEEDS ATTENDED TOO,KEPT PTS CLEAN DRY AND COMFORTABLE.WILL ENDORSE TO RN DAY SHIFT SHIFT FOR CONTINUITY FOR CONTINUITY OF CARE.
--- NOTE | 2018-07-28 07:00 | NUR ---
KWAME RN NOTE PTS IN BED AWAKE AND RESPONSIVE ,ON TELE AFIB-120 ON THE MONITOR.NO SOB NO DISTRESS , WITH 1:1 SITTER AT BEDSIDE, ALL NEEDS ATTENDED TOO , PTS CALM AT THIS TIME NO APPARENT DISTRESS NOTED KEPT PTS CLEAN DRY AND COMFORTABLE TURNED FOR COMFORT. RN WILL CONTINUE TO MONITOR CLOSELY. BED IN LOWEST LOCKED POSTION, AT 35 DEGRESS SEMI FOWLERS.
[2018-07-28] MEDS: BLOOD SUGAR DIAGNOSTIC 1 EACH STRIP IN SCH ×2 (07:30→11:30)
[2018-07-28 08:00] VITALS: BP 115/77
[2018-07-28 08:00] LABS: CALCIUM, SERUM 7.8 mg/dL (8.5-10.1); CARBON DIOXIDE 23 mmol/L (21-32); CHLORIDE 112 mmol/L (98-107); GLUCOSE 106 mg/dL (74-106); POTASSIUM 3.3 mmol/L (3.5-5.1); SODIUM SERUM 145 mmol/L (136-145); UREA NITROGEN, BLOOD 19 mg/dL (7-18)
[2018-07-28] MEDS: ENSURE ENLIVE CHOC 237 ML CAN PO SCH (08:00)
[2018-07-28] MEDS: CALCIUM CARB 600MG /VIT D 1 EACH TABLET PO SCH (08:10)
[2018-07-28] MEDS: LORAZEPAM 0.5 MG TABLET PO SCH ×2 (08:10→12:01)
[2018-07-28] MEDS: MAGNESIUM HYDROXIDE 30 ML UDC PO SCH (08:10)
[2018-07-28] MEDS: LACTOBACILLUS RHAMNOSUS GG 1 EACH CAP.SPRINK PO SCH (08:10)
[2018-07-28] MEDS: RIVAROXABAN 15 MG TABLET PO SCH (08:11)
[2018-07-28] MEDS: CHOLECALCIFEROL 1,000 UNIT TABLET (VIT D3) PO SCH (08:11)
[2018-07-28] MEDS: BENZTROPINE MESYLATE (1 MG) 1 MG TABLET PO SCH (08:12)
[2018-07-28] MEDS: MULTIVITAMINS,THERAGRAN 1 UDTAB TABLET PO SCH (08:12)
[2018-07-28] MEDS: risperiDONE 1 MG TABLET PO SCH ×2 (08:12→12:00)
[2018-07-28] MEDS: PANTOPRAZOLE 40 MG TABLET.DR PO SCH (08:12)
[2018-07-28] MEDS: PROSOURCE / PROSTAT (PYXIS) 30 ML UDC PO SCH (08:29)
[2018-07-28] MEDS ORDERED: POTASSIUM CHLORIDE 20 MEQ TAB.PRT.SR PO SCH (10:30)
[2018-07-28] MEDS: VANCOMYCIN 0.75 GM in IV D5W 250 ML IV SCH (11:00)
[2018-07-28 11:30] VITALS: BP 122/86
[2018-07-28] MEDS ORDERED: POTASSIUM CHLORIDE 20 MEQ POWDER PACKET PO ONE (11:30)
[2018-07-28] MEDS: INSULIN REGULAR, HUMAN 100 UNIT/ML 3 ML VIAL SQ PRN (12:03)
--- NOTE | 2018-07-28 14:33 | NUR ---
MS RN NOTE PATIENT STABLE AT THIS TIME. PATIENT IS BEING D/C TO [facility]. REPORT GIVEN TO WINNIE TROY FOR AUGUSTIN. TRANSPORTATION SCHEDULED TO PICK PATIENT UP AT 3PM. D/C EDUCATION/INSTRUCTIONS GIVEN TO BENEDICT PIERCE WHO SIGNED FOR D/C.
--- NOTE | 2018-07-28 16:00 | NUR ---
MS RN NOTE TRANSPORTATION ARRIVED TO PICK PATIENT UP. TRANSFER OF CARE AND REPORT GIVEN TO TRANSPORTATION TEAM.
== END 2018-07-28 16:10 | DRG 871 ==
LOC: ER 08:11 → TELE-TD 10:45 → TELE1 15:41 → ICU 20:51 → TELE-TD 07-25 17:47 → MEDSG1 07-28 09:14
PROVIDERS: ADMIT Nurse Practitioner Acute Care; ATTEND Nurse Practitioner Acute Care
PROC: 05H633Z Insertion of Infusion Device into Left Subclavian Vein, Percutaneous Approach (ICD-10-PCS; principal; 2018-07-27)
PROC: B547ZZA Ultrasonography of Left Subclavian Vein, Guidance (ICD-10-PCS; 2018-07-27)
DX: A41.9 Sepsis, unspecified organism (principal); J15.6 Pneumonia due to other Gram-negative bacteria; N17.0 Acute kidney failure with tubular necrosis; G92 Toxic encephalopathy; I26.99 Other pulmonary embolism without acute cor pulmonale; E44.0 Moderate protein-calorie malnutrition; E87.0 Hyperosmolality and hypernatremia; E87.2 Acidosis; D68.59 Other primary thrombophilia; F05 Delirium due to known physiological condition; F32.3 Major depressive disorder, single episode, severe with psychotic features; I82.401 Acute embolism and thrombosis of unspecified deep veins of right lower extremity; J44.0 Chronic obstructive pulmonary disease with (acute) lower respiratory infection; R65.20 Severe sepsis without septic shock; E66.9 Obesity, unspecified; Z68.28 Body mass index [BMI] 28.0-28.9, adult; K21.9 Gastro-esophageal reflux disease without esophagitis; I48.91 Unspecified atrial fibrillation; F03.90 Unspecified dementia, unspecified severity, without behavioral disturbance, psychotic disturbance, mood disturbance, and anxiety; I12.9 Hypertensive chronic kidney disease with stage 1 through stage 4 chronic kidney disease, or unspecified chronic kidney disease; N18.9 Chronic kidney disease, unspecified; R74.0 Nonspecific elevation of levels of transaminase and lactic acid dehydrogenase [LDH]; R73.9 Hyperglycemia, unspecified; D63.8 Anemia in other chronic diseases classified elsewhere; I25.10 Atherosclerotic heart disease of native coronary artery without angina pectoris; K81.1 Chronic cholecystitis; K76.0 Fatty (change of) liver, not elsewhere classified; Z79.01 Long term (current) use of anticoagulants; Z86.711 Personal history of pulmonary embolism; Z86.718 Personal history of other venous thrombosis and embolism; I34.0 Nonrheumatic mitral (valve) insufficiency
CPT/HCPCS: 36415; 36569; 36600; 70450-TC; 71045-TC; 76705-TC; 80048-TC; 80053-TC; 80061-TC; 80076-TC; 80202-TC; 81000-TC; 82803-TC; 82962-TC; 83605-TC; 83735-TC; 83880; 84100-TC; 84484-TC; 85025-TC; 85730-TC; 86850-TC; 87040-TC; 87081-TC; 87086-TC; 93970-TC; 94799-TC; A4216; G0378; J0282; J0696; J1160; J1815; J1956; J2060; J2270; J2543; J3370; J3490; J7030; J7040; J7050; J7060